=== PATIENT | male | born 1950 | race Caucasian/White ===

== ENCOUNTER 2022-07-14 19:44 | Emergency (ER) | payer BC, OTHER ==
[~2022-07-14] VITALS: Ht 177.8 cm; Wt 91.0 kg
[2022-07-14 20:40] VITALS: BP 143/89
[2022-07-14] MEDS ORDERED: TETANUS, DIPHTHERIA, PERTUSSIS VAC/PF 0.5ML (>10YR OLD) IM ONE (23:15)
[2022-07-14] MEDS ORDERED: IBUPROFEN 600MG TABLET PO ONE (23:15)
[2022-07-14] MEDS ORDERED: BACITRACIN ZINC OINT UDPKT TOP ONE (23:15)
[2022-07-14] MEDS ORDERED: LIDOCAINE HCL/PF 1% 10 MG/ML 5ML VIAL INFIL ONE (23:15)
[2022-07-15] MEDS ORDERED: AMOXICILLIN/POTASSIUM CLAVULANATE 875/125MG TAB PO NR (02:15)
[2022-07-15] MEDS ORDERED: IBUP-2029 PO (02:15)
[2022-07-15] MEDS ORDERED: AMOX1TAB16 PO (02:15)
== END 2022-07-15 03:14 | disposition home or self-care (01) ==
LOC: ER 19:44
DX: S61.252A Open bite of right middle finger without damage to nail, initial encounter (principal); S61.254A Open bite of right ring finger without damage to nail, initial encounter; E11.9 Type 2 diabetes mellitus without complications; I10 Essential (primary) hypertension; Z93.3 Colostomy status; Z85.038 Personal history of other malignant neoplasm of large intestine; Z88.8 Allergy status to other drugs, medicaments and biological substances; W54.0XXA Bitten by dog, initial encounter; Y93.89 Activity, other specified; Y92.89 Other specified places as the place of occurrence of the external cause; Y99.8 Other external cause status
CPT/HCPCS: 73130; 90471; 90715; 99284; J3490